=== PATIENT | male | born 1995 | race African-American/Black ===

== ENCOUNTER 2019-11-18 14:21 | Emergency (ER) | payer MEDICAID, OTHER ==
[~2019-11-18] VITALS: Ht 182.9 cm; Wt 79.4 kg
[2019-11-18 14:44] VITALS: BP 144/83
[2019-11-18] MEDS ORDERED: methylPREDNISolone SOD SUCC 125 MG/2 ML VL IM ONE (17:30)
== END 2019-11-18 17:36 | disposition home or self-care (01) ==
LOC: EDBD 14:21 → ER 14:37
DX: J06.9 Acute upper respiratory infection, unspecified (principal); J45.909 Unspecified asthma, uncomplicated; F17.210 Nicotine dependence, cigarettes, uncomplicated
CPT/HCPCS: 96372; 99283; J2930